=== PATIENT | female | born 1980 | race Caucasian/White ===

== ENCOUNTER 2017-10-20 17:04 | Emergency (ER) | payer SELFPAY ==
[2017-10-20 17:13] VITALS: BMI 37.2
--- NOTE | 2017-10-20 17:13 | PDOC ---
Rapid Medical Evaluation Time Seen by Provider: 10/20/17 17:09 Medical Evaluation: Allergies Allergy/AdvReac Type Severity Reaction Status Date / Time No Known Allergies Allergy Verified 10/29/14 11:47 10/20/17 17:09 37y/o F , 21wks with lower abd pain and cramping X 3 days, no vag bleed. pt was sent from [facility]. lmp 3. PE: vss Plan: sent to L&D Discharge Disposition - Diagnosis Abdominal pain during Qualifiers: Trimester: second trimester Qualified Code(s): O26.892 - Other specified related conditions, second trimester; R10.9 - Unspecified abdominal pain - Referrals - Patient Instructions - Post Discharge Activity
[2017-10-20 17:59] VITALS: BP 112/51; PULSE 60; TEMP 98
== END 2017-10-20 18:15 | disposition home or self-care (01) ==
LOC: JER 17:04
DX: O26.892 Other specified pregnancy related conditions, second trimester (principal); Z3A.21 21 weeks gestation of pregnancy; R10.9 Unspecified abdominal pain
CPT/HCPCS: 99281-25